=== PATIENT | female | born 1960 | race Caucasian/White ===

== ENCOUNTER → 2018-12-13 17:54 | Emergency (ER) | payer OTHER ==
[2018-12-13 18:00] VITALS: BP 152/83
--- OUTSIDE RECORDS SUMMARY | 2018-12-13 18:05 | XMS REPORT | Continuity of Care Document ---
:1960 External Reference #:[id number] Author Name LeightonmadanChristina Care Team Providers Name Role Phone Jacquie Smith MD Primary Care Physician Unavailable Payers Date Identification Numbers Payment Provider Subscriber Policy Number: [id number] [employer] Daisha Elvia Loren PayID: [id number] [address] [place] [address] Expires: 2012 Policy Number: [id number] [facility] Daisha Gómezling Group Number: [id number] [address] PayID: [id number] [place] [address] Advance Directives Type Date Description Status Comment Other Directive 08/12/2015 Health Care Proxy Current and Verified Problems Date Description Provider Status Onset: 02/20/2011 Migraine Raine Lora N.P. 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 Multiple / Active Tablets 1 po qd Unknown Vitamins 0000 Probiotic / Active Capsules 30cap 1 po qd Unknown 0000 s Calcium 500 / Active 1 po daily Unknown 0000 Tetracycline 10/25/ Hx Capsules 500mg 14cap 1 by mouth Raine HCL 2014 - s twice a day Varn, 11/01/ N.P. 2014 Ciprofloxacin 10/23/ Hx Tablets 500mg 7tabs one by 599.0 Raine HCL 2014 - mouth twice Varn, 10/25/ daily for 7 N.P. 2014 days Ciprofloxacin 10/08/ Hx Tablets 250mg 14tab take one 788.41 Neil HCL 2014 - tablet MANUEL Lea 10/15/ twice a day 2014 for 7 more days. Sulfamethoxazol 05/17/ Hx Tablets 800-160mg 10tab 1 tablet by 892.0 Neil e/Trimethoprim 2013 - s mouth every MANUEL Lea DS 07/23/ 12 hours 5 2013 days Ciprofloxacin 12/19/ Hx Tablets 250mg 14tab one by 599.0 Raine HCL 2013 - s mouth twice Varn, 12/26/ a day for 7 N.P. 2013 days Tetracycline 09/10/ Hx Capsules 250mg 28cap 1 po qid Raine HCL 2013 - s for 7 days Varn, 09/11/ N.P. 2013 Ciprofloxacin 09/06/ Hx Tablets 500mg 14tab one by 599.0 Raine HCL 2013 - s mouth twice Varn, 09/13/ daily for 7 N.P. 2013 days Pyridium 09/06/ Hx Tablets 100mg 9tabs one po tid 599.0 Raine 2014 - for 3 days Varn, 09/09/ N.P. 2013 Naproxen 08/28/ Hx Tablets 500mg 40tab 1 tablet Lori 2013 - s Q12 hours Jeff, 08/23/ prn pain Airma 2014 Fluticasone 12/24/ Hx Suspension 50mcg/Act 1bott 2 spray in 461.0 RodolfoLeif Keegan Mauro 2011 - le juan Dangelo, 08/08/ nostril in Luna.Lucia,FACP 2012 am Nasal Saline 12/24/ Hx Solution 0.65% 1ml 2 sprays in 461.0 Diony 2011 - each D. Loreto, 08/08/ nostril 5 M.D.,FACP 2013 times a day Amoxicillin 12/24/ Hx Capsules 500mg 20cap 1 cap bid 461.0 Diony 2011 - s for 10 days Lucia Dangelo, 03/03/ M.D.,FACP 2011 Treximet 12/04/ Hx Tablets 85-500mg 12tab take 1 Raine 2010 - tablet Varn, 10/04/ orally once N.P. 2018 a day as needed Audiometry 09/25/ Hx Minerva 2010 - Maura, 08/08/ M.D., 2013 FACP Medications Administered in Office Medication Date Status Form Strength Qnty SIG Indications Ordering Provider Celestone 3 mg Administered Injection Glenis and 3mg 014 Cam pastrana M.D. Depomedrol Administered Injection Lori 80MG 014 Airam Aguilar Immunizations CPT Code Status Date Vaccine Lot # [id number] Given 05/17/2014 Tetanus And Diptheria (Td) For Adult Use [id number] Preservative Free [id number] Given 04/05/2007 Tdap - Tetanus/Diptheria/Acellular Pertussis [id number] Given 04/05/2007 Tdap - Tetanus/Diptheria/Acellular Pertussis Vital Signs Date Vital Result Comment 11/22/2018 12:55pm Height 65 inches 5'5" 75 Weight 123.38 lb Heart Rate 81 /min BP Systolic 120 mmHg BP Diastolic 67 mmHg Body Temperature 97.2 F O2 % BldC Oximetry 98 % BMI (Body Mass Index) 20.5 kg/m2 Waist Circumference 26 10/21/2017 11:43am Height 65 inches 75 Weight 122.50 lb Heart Rate 66 /min BP Systolic 98 mmHg BP Diastolic 62 mmHg Body Temperature 98.6 F O2 % BldC Oximetry 97 % BMI (Body Mass Index) 20.4 kg/m2 Waist Circumference 25 10/04/2017 9:10am Height 66 inches 5'6" Weight 121.00 lb Heart Rate 60 /min BP Systolic 119 mmHg BP Diastolic 70 mmHg Body Temperature 97.2 F O2 % BldC Oximetry 97 % BMI (Body Mass Index) 19.5 kg/m2 08/18/2016 9:10am Height 65.5 inches 5'5.50" Weight 124.00 lb Heart Rate 71 /min BP Systolic Sitting 102 mmHg BP Diastolic Sitting 58 mmHg O2 % BldC Oximetry 98 % BMI (Body Mass Index) 20.3 kg/m2 08/12/2015 9:27am Height 65.5 inches 5'5.50" Weight 122.25 lb Heart Rate 65 /min BP Systolic Sitting 105 mmHg BP Diastolic Sitting 68 mmHg Body Temperature 97.3 F O2 % BldC Oximetry 99 % BMI (Body Mass Index) 20.0 kg/m2 02/19/2015 8:19am Height 66 inches 5'6" Weight 119.00 lb Pain Level 1 BMI (Body Mass Index) 19.2 kg/m2 01/22/2015 8:08am Height 66 inches 5'6" Weight 119.00 lb Body Temperature 97.2 F Pain Level 0 BMI (Body Mass Index) 19.2 kg/m2 12/19/2014 10:10am Height 66 inches 5'6" Weight 119.00 lb Pain Level 0 BMI (Body Mass Index) 19.2 kg/m2 11/16/2014 2:34pm Height 66 inches 5'6" Weight 119.00 lb Pain Level 0 BMI (Body Mass Index) 19.2 kg/m2 10/23/2014 10:03am Weight 119.00 lb Heart Rate 78 /min BP Systolic Sitting 126 mmHg BP Diastolic Sitting 72 mmHg Body Temperature 97.2 F 10/08/2014 3:52pm Weight 122.25 lb Heart Rate 78 /min BP Systolic Sitting 112 mmHg BP Diastolic Sitting 60 mmHg Body Temperature 97.9 F 09/18/2014 10:53am Height 66 inches 5'6" Weight 116.00 lb Pain Level 0 BMI (Body Mass Index) 18.7 kg/m2 08/14/2014 8:12am Height 66 inches 5'6" Weight 115.00 lb Pain Level 6 BMI (Body Mass Index) 18.6 kg/m2 08/09/2014 9:57am Height 66 inches 5'6" Weight 118.00 lb Heart Rate 64 /min BP Systolic 100 mmHg BP Diastolic 64 mmHg Body Temperature 96.9 F BMI (Body Mass Index) 19.0 kg/m2 07/31/2014 9:42am Height 66 inches 5'6" Weight 116.00 lb Heart Rate 64 /min BP Systolic Sitting 104 mmHg BP Diastolic Sitting 68 mmHg Respiratory Rate 16 /min Pain Level 6 BMI (Body Mass Index) 18.7 kg/m2 05/17/2014 1:30pm Weight 119.50 lb Heart Rate 60 /min BP Systolic Sitting 102 mmHg BP Diastolic Sitting 70 mmHg Body Temperature 97.2 F 05/11/2014 1:01pm Weight 120.00 lb Heart Rate 68 /min BP Systolic Sitting 110 mmHg BP Diastolic Sitting 66 mmHg 12/19/2013 2:13pm Weight 134.50 lb Heart Rate 76 /min BP Systolic 120 mmHg BP Diastolic 72 mmHg Respiratory Rate 16 /min Body Temperature 96.8 F 09/11/2013 8:37am Height 66 inches Weight 125.00 lb Heart Rate 70 /min BP Systolic 96 mmHg BP Diastolic 61 mmHg BMI (Body Mass Index) 20.2 kg/m2 09/06/2013 12:53pm Weight 129.00 lb Heart Rate 76 /min BP Systolic Sitting 126 mmHg BP Diastolic Sitting 82 mmHg Body Temperature 98.5 F 08/28/2013 10:12am Height 66 inches 5'6" Weight 125.00 lb Heart Rate 65 /min BP Systolic 119 mmHg BP Diastolic 79 mmHg BMI (Body Mass Index) 20.2 kg/m2 08/08/2013 10:51am Height 65.75 inches 5'5.75" Weight 129.00 lb Heart Rate 78 /min BP Systolic Sitting 104 mmHg BP Diastolic Sitting 70 mmHg BMI (Body Mass Index) 21.0 kg/m2 02/14/2013 9:18am Weight 126.00 lb Heart Rate 76 /min BP Systolic Sitting 112 mmHg BP Diastolic Sitting 72 mmHg 03/03/2012 9:00am Height 66 inches 5'6" Weight 126.00 lb Heart Rate 68 /min BP Systolic Sitting 124 mmHg BP Diastolic Sitting 66 mmHg BMI (Body Mass Index) 20.3 kg/m2 12/25/2011 9:03am Height 66 inches 5'6" Weight 131.00 lb Heart Rate 80 /min BP Systolic Sitting 120 mmHg BP Diastolic Sitting 74 mmHg BMI (Body Mass Index) 21.1 kg/m2 02/20/2011 8:36am Height 67 inches 5'7" Weight 130.00 lb Heart Rate 72 /min BP Systolic Sitting 108 mmHg BP Diastolic Sitting 66 mmHg BMI (Body Mass Index) 20.4 kg/m2 09/25/2010 2:39pm Heart Rate 72 /min BP Systolic 102 mmHg BP Diastolic 68 mmHg Body Temperature 98.7 F Results Test Date Facility Test Result H/L Range Note Lipid Profile 11/17/2018 [facility] Triglycerides 88 mg/dL 1 (Trig/Chol/HDL) [address] [place] [address] [phone] Cholesterol 201 mg/dL 2 HDL Cholesterol 77.2 mg/dL 3 LDL Cholesterol 106 mg/dL 4 Comp Metabolic Panel 11/17/2018 [facility] Sodium 141 mmol/L N 135-145 [place] [address] [phone] Potassium 4.3 mmol/L N 3.5-5.0 Chloride 104 mmol/L N 101-111 Co2 Carbon Dioxide 32 mmol/L N 22-32 Anion Gap 5 mmol/L N 2-11 Glucose 92 mg/dL N 70-100 Blood Urea Nitrogen 22 mg/dL N 6-24 Creatinine 0.74 mg/dL N 0.51-0.95 BUN/Creatinine Ratio 29.7 High 8-20 Calcium 9.9 mg/dL N 8.6-10.3 Total Protein 6.8 g/dL N 6.4-8.9 Albumin 4.6 g/dL N 3.2-5.2 Globulin 2.2 g/dL N 2-4 Albumin/Globulin Ratio 2.1 N 1-3 Total Bilirubin 0.50 mg/dL N 0.2-1.0 Alkaline Phosphatase 53 U/L N 34-104 Alt 15 U/L N 7-52 Ast 21 U/L N 13-39 Egfr Non- 81.2 >60 Egfr 98.2 >60 5 Lipid Profile 09/09/2017 [facility] Triglycerides 76 mg/dL 6 (Trig/Chol/HDL) [address] [place] [address] [phone] Cholesterol 191 mg/dL 7 HDL Cholesterol 65.7 mg/dL 8 LDL Cholesterol 110 mg/dL 9 Comp Metabolic Panel 09/09/2017 [facility] Sodium 139 mmol/L N 133-145 [address] [place] [address] [phone] Potassium 4.1 mmol/L N 3.5-5.0 Chloride 103 mmol/L N 101-111 Co2 Carbon Dioxide 32 mmol/L N 22-32 Anion Gap 4 mmol/L N 2-11 Glucose 77 mg/dL N 70-100 Blood Urea Nitrogen 20 mg/dL N 6-24 Creatinine 0.73 mg/dL N 0.51-0.95 BUN/Creatinine Ratio 27.4 High 8-20 Calcium 9.7 mg/dL N 8.6-10.3 Total Protein 6.5 g/dL N 6.4-8.9 Albumin 4.2 g/dL N 3.2-5.2 Globulin 2.3 g/dL N 2-4 Albumin/Globulin Ratio 1.8 N 1-3 Total Bilirubin 0.50 mg/dL N 0.2-1.0 Alkaline Phosphatase 54 U/L N 34-104 Alt 13 U/L N 7-52 Ast 21 U/L N 13-39 Egfr Non- 82.8 >60 Egfr 106.4 >60 10 Lipid Profile 08/06/2016 [facility] Triglycerides 60 mg/dL N 11 (Trig/Chol/HDL) [address] [place] [address] [phone] Cholesterol 191 mg/dL N 12 HDL Cholesterol 71.8 mg/dL N 13 LDL Cholesterol 107 mg/dL N 14 Comp Metabolic Panel 08/06/2016 [facility] Sodium 139 mmol/L N 133-[address] [place] [address] [phone] Potassium 4.0 mmol/L N 3.5-5.0 Chloride 103 mmol/L N 101-111 Co2 Carbon Dioxide 31 mmol/L N 22-32 Anion Gap 5 mmol/L N 2-11 Glucose 82 mg/dL N 70-100 Blood Urea Nitrogen 19 mg/dL N 6-24 Creatinine 0.71 mg/dL N 0.51-0.95 BUN/Creatinine Ratio 26.8 High 8-20 Calcium 9.6 mg/dL N 8.6-10.3 Total Protein 6.4 g/dL N 6.4-8.9 Albumin 4.2 g/dL N 3.2-5.2 Globulin 2.2 g/dL N 2-4 Albumin/Globulin Ratio 1.9 N 1-3 Total Bilirubin 0.60 mg/dL N 0.2-1.0 Alkaline Phosphatase 51 U/L N 34-104 Alt 15 U/L N 7-52 Ast 22 U/L N 13-39 Egfr Non- 85.8 N >60 Egfr 110.3 N >60 15 Comp Metabolic Panel 07/30/2015 [facility] Sodium 140 mmol/L N 133-145 [address] [place] [address] [phone] Potassium 4.1 mmol/L N 3.5-5.0 Chloride 104 mmol/L N 101-111 Co2 Carbon Dioxide 31 mmol/L N 22-32 Anion Gap 5 mmol/L N 2-11 Glucose 81 mg/dL N 70-100 Blood Urea Nitrogen 20 mg/dL N 6-24 Creatinine 0.80 mg/dL N 0.51-0.95 BUN/Creatinine Ratio 25.0 High 8-20 Calcium 9.6 mg/dL N 8.6-10.3 Total Protein 6.4 g/dL N 6.4-8.9 Albumin 4.4 g/dL N 3.2-5.2 Globulin 2.0 g/dL N 2-4 Albumin/Globulin Ratio 2.2 N 1-3 Total Bilirubin 0.60 mg/dL N 0.2-1.0 Alkaline Phosphatase 53 U/L N 34-104 Alt 12 U/L N 7-52 Ast 20 U/L N 13-39 Egfr Non- 75.0 N >60 Egfr 96.5 N >60 16 Lipid Profile 07/30/2015 [facility] Triglycerides 75 mg/dL N 17 (Trig/Chol/HDL) [address] [place] [address] [phone] Cholesterol 191 mg/dL N 18 HDL Cholesterol 70.1 mg/dL N 19 LDL Cholesterol 106 mg/dL N 20 Ua Routine 10/23/2014 [employer] Ua Specific [place] 1.020 Ua PH 5 Ua Color laisha Ua Appera cloudy Ua WBC lg Ua Protein 300 Ua Glucose neg Ua Ketones neg Ua Bilirubin neg Ua Urobilinogen 0.2 Ua Nitrite pos Ua Occult Blood lg Urine Culture And 10/23/2014 [facility] Urine Culture (SEE NOTE ) 21 [address]ivities [address] [place] [address] [phone] Urine Culture And 10/08/2014 [facility] Urine Culture (SEE NOTE ) 22 Sensitivities [address] [place] [address] [phone] Ua Routine 10/08/2014 [employer] Ua Specific 1.020 [place] Ua PH 5 Ua Color yellow Ua Appera cloudy Ua WBC moderate Ua Protein 30+ Ua Glucose neg Ua Ketones neg Ua Bilirubin small Ua Urobilinogen normal Ua Nitrite 30+ Ua Occult Blood large Lipid Profile 07/25/2014 [facility] Triglycerides 84 mg/dL N 23, 24 (Trig/Chol/HDL) [address] [place], [place] [id number] [phone] Cholesterol 183 mg/dL N 25 HDL Cholesterol 62.4 mg/dL N 26 LDL Cholesterol 104 mg/dL N 27 Laboratory test 07/25/2014 [facility] Glucose 84 mg/dL N 70- [address] [place], [place] [id number] [phone] Comp Metabolic Panel 05/16/2014 [facility] Sodium 139 mmol/L N 133-[address] [place] [address] [phone] Potassium 4.4 mmol/L N 3.7-5.6 Chloride 102 mmol/L N 101-111 Co2 Carbon Dioxide 34 mmol/L High 22-32 Anion Gap 3 mmol/L N 2-11 Glucose 87 mg/dL N 70-100 Blood Urea Nitrogen 15 mg/dL N 6-24 Creatinine 0.86 mg/dL N 0.51-0.95 BUN/Creatinine Ratio 17.4 N 8-20 Calcium 9.8 mg/dL N 8.6-10.3 Total Protein 6.9 g/dL N 6.4-8.9 Albumin 4.4 g/dL N 3.2-5.2 Globulin 2.5 g/dL N 2-4 Albumin/Globulin Ratio 1.8 N 1-3 Total Bilirubin 0.60 mg/dL N 0.2-1.0 Alkaline Phosphatase 50 U/L N 34-104 Alt 14 U/L N 7-52 Ast 22 U/L N 13-39 Egfr Non- 69.6 N >60 Egfr 89.5 N >60 29 Laboratory test 05/16/2014 [facility] TSH (Thyroid 1.79 N 0.34 -5.[address] Stimulating IU/[place] [address] Horm) [phone] CBC With Manual 05/16/2014 [facility] White Blood 4.5 Low 4.8- 10.[address] Count 10^3/[place] [address] [phone] Red Blood Count 4.51 10^6/uL N 4.0-5.4 Hemoglobin 13.3 g/dL N 12.0-16.0 Hematocrit 40 % N 35-47 Mean Corpuscular Volume 88 fL N 80-97 Mean Corpuscular Hemoglobin 30 pg N 27-31 Mean Corpuscular HGB Conc 34 g/dL N 31-36 Red Cell Distribution Width 13 % N 10.5-15 Platelet Count 213 10^3/uL N 150-450 Mean Platelet Volume 8 um3 N 7.4-10.4 Abs Neutrophils 2.5 10^3/uL N 1.5-7.7 Abs Lymphocytes 1.4 10^3/uL N 1.0-4.8 Abs Monocytes 0.4 10^3/uL N 0-0.8 Abs Eosinophils 0.1 10^3/uL N 0-0.6 Abs Basophils 0.1 10^3/uL N 0-0.2 Abs Nucleated RBC 0.01 10^3/uL N Neutrophil % 57 % N 38-83 Lymphocytes % 27 % N 25-47 Monocytes % 12 % N 0-13 Eosinophils % 1 % N 0-6 Basophil % 3 % High 0-2 Hypochromasia 1+ N Elliptocyte 1+ N Urine Culture And 12/19/2013 [facility] Urine Culture (SEE NOTE ) [address] [place] [address] [phone] Ua Routine 12/19/2013 [employer] Ua Specific 1.000 [place] Ua PH 7.0 Ua Color yellow Ua Appera cloudy Ua WBC small Ua Protein neg Ua Glucose neg Ua Ketones neg Ua Bilirubin sm Ua Urobilinogen neg Ua Nitrite neg Ua Occult Blood large Urine Culture And 09/06/2013 [facility] Urine Culture (SEE NOTE ) [address] [place] [address] [phone] Ua Routine 09/06/2013 [employer] Ua Specific 1.025 [place] Ua PH 8.5 Ua Color brown Ua Appera cloudy Ua WBC moderate Ua Protein 2000+ Ua Glucose neg Ua Ketones neg Ua Bilirubin neg Ua Urobilinogen neg Ua Nitrite neg Ua Occult Blood Xlarge Lipid Profile 08/03/2013 [facility] Triglycerides 69 mg/dL 40 -200 (Trig/Chol/HDL) [address] [place], [place] [id number] [phone] Cholesterol 202 mg/dL High Less than 200 HDL Cholesterol 70 mg/dL High 40-60 32 Cholesterol/HDL Ratio 2.9 Average 1-4.44 LDL Cholesterol 118.2 High Less Than 100 33 Laboratory test 08/03/2013 [facility] Glucose 81 mg/dL 70- 100 [address] [place], [place] [id number] [phone] Laboratory test 02/17/2013 [facility] TSH (Thyroid 1.57 0.34- 5.[address] Stimulating miu/[place] [address] Horm) [phone] Comp Metabolic 02/17/2013 [facility] Sodium 139 133-[address] mmol/L [place], [place] [id number] [phone] Potassium 4.0 mmol/L 3.5-5.0 Chloride 103 mmol/L 101-111 Co2 Carbon Dioxide 31.0 mmol/L 22-32 Anion Gap 5.0 mmol/L 2-11 Glucose 91 mg/dL 70-100 Blood Urea Nitrogen 16 mg/dL 6-24 Creatinine 0.70 mg/dL 0.50-1.40 BUN/Creatinine Ratio 22.9 High 8-20 Calcium 9.5 mg/dL 8.1-9.9 Total Protein 6.2 g/dL 6.2-8.1 Albumin 4.2 g/dL 3.6-5.4 Globulin 2.0 g/dL 2-4 Albumin/Globulin Ratio 2.1 1-3 Total Bilirubin 0.9 mg/dL 0.4-1.5 Alkaline Phosphatase 41 U/L 30-110 Alt 15 U/L 14-54 Ast 22 U/L 12-42 Egfr Non- 88.6 >60 Egfr 113.9 >60 35 CBC With 02/17/2013 [facility] White Blood 4.7 10^3/uL Low 4.8 -10.8 Manual Diff [address] [place] [address] [phone] Red Blood Count 4.26 10^6/uL 4.0-5.4 Hemoglobin 12.8 g/dL 12.0-16.0 Hematocrit 39 % 35-47 Mean Corpuscular Volume 91 fL 80-97 Mean Corpuscular Hemoglobin 30 pg 27-31 Mean Corpuscular HGB Conc 33 g/dL 31-36 Red Cell Distribution Width 13 % 10.5-15 Platelet Count 190 10^3/uL 150-450 Mean Platelet Volume 9 um3 7.4-10.4 Abs Neutrophils 2.7 10^3/uL 1.5-7.7 Abs Lymphocytes 1.4 10^3/uL 1.0-4.8 Abs Monocytes 0.4 10^3/uL 0-0.8 Abs Eosinophils 0.1 10^3/uL 0-0.6 Abs Basophils 0 10^3/uL 0-0.2 Abs Nucleated RBC 0 10^3/uL Neutrophil % 58 % 38-83 Lymphocytes % 31 % 25-47 Monocytes % 5 % 0-13 Eosinophils % 3 % 0-6 Basophil % 3 % High 0-2 Elliptocyte 1+ Surgical 09/07/2012 [facility] S RUN DATE: [address] 09/12/ <[place] [address] NOTE> [phone] Laboratory test 03/03/2011 [facility] TSH 1.44 MIU/ML 0.34-[address] [place] [address] [phone] Lipid Profile 03/03/2011 [facility] Triglyceride 75 mg/dL 40- 200 (Trig/Chol/HDL) [address] [place] [address] [phone] Cholesterol 185 mg/dL Less Than 200 37 High Density Lipoprotein 62 mg/dL High 40-60 38 Cholesterol/HDL Ratio 2.98 AVERAGE 1-4.44 Low Density Lipoprotein 108 mg/dL High Less Than 100 39 Comp Metabolic Panel 03/03/2011 [facility] Sodium 137 mmol/L 135-[address] [place] [address] [phone] Potassium 3.6 mmol/L 3.5-5.0 Chloride 103 mmol/L 101-111 Co2 (Carbon Dioxide) 29.0 mmol/L 22-32 Anion Gap 5.0 mmol/L 2-11 40 Glucose 86 mg/dL 70-100 BUN 12 mg/dL 6-24 Creatinine 0.70 mg/dL 0.50-1.40 One Over Creatinine 1.40 BUN/Creatinine Ratio 17.1 8-20 Calcium 8.9 mg/dL 8.1-9.9 Total Protein 5.8 GM/DL Low 6.2-8.1 Albumin 4.0 GM/DL 3.6-5.4 Globulin 1.8 GM/DL Low 2-4 Albumin/Globulin Ratio 2.2 1-3 Bilirubin Total 0.8 mg/dL 0.4-1.5 41 Alkaline Phosphatase 44 U/L 30-110 Alt (SGPT) 12 U/L Low 14-54 Ast (Sgot) 22 U/L 12-42 eGFR Non- 89.3 > 60 eGFR 114.9 > 60 42 Laboratory test 02/20/2011 [facility] Cytology <SEE [address] NOTE> [place] [address] [phone] 1 Desirable: <150 Borderline High: 150-199 High: 200-499 Very High: >500 2 Desirable: <200 Borderline High: 200-239 High: >239 3 Low: <40 Desirable: 40-60 High: >60 4 Desirable: <100 Near Optimal: 100-129 Borderline High: 130-159 High: 160-189 Very High: >189 5 Because ethnic data is not always readily available, this report includes an eGFR for both -Americans and non- Americans. The National Kidney Disease Education Program (NKDEP) does not endorse the use of the MDRD equation for patients that are not between the ages of 18 and 70, are , have extremes of body size, muscle mass, or nutritional status, or are non- or non-. According to the National Kidney Foundation, irrespective of diagnosis, the stage of the disease is based on the level of kidney function: Stage Description GFR(mL/min/1.73 m(2)) 1 Kidney damage with normal or decreased GFR 90 2 Kidney damage with mild decrease in GFR 60-89 3 Moderate decrease in GFR 30-59 4 Severe decrease in GFR 15-29 5 Kidney failure <15 (or dialysis) 6 Desirable: <150 Borderline High: 150-199 High: 200-499 Very High: >500 7 Desirable: <200 Borderline High: 200-239 High: >239 8 Low: <40 Desirable: 40-60 High: >60 9 Desirable: <100 Near Optimal: 100-129 Borderline High: 130-159 High: 160-189 Very High: >189 10 Because ethnic data is not always readily available, this report includes an eGFR for both -Americans and non- Americans. The National Kidney Disease Education Program (NKDEP) does not endorse the use of the MDRD equation for patients that are not between the ages of 18 and 70, are , have extremes of body size, muscle mass, or nutritional status, or are non- or non-. According to the National Kidney Foundation, irrespective of diagnosis, the stage of the disease is based on the level of kidney function: Stage Description GFR(mL/min/1.73 m(2)) 1 Kidney damage with normal or decreased GFR 90 2 Kidney damage with mild decrease in GFR 60-89 3 Moderate decrease in GFR 30-59 4 Severe decrease in GFR 15-29 5 Kidney failure <15 (or dialysis) 11 Desirable <150 Borderline high 150-199 High 200-499 Very High >500 12 Desirable <200 Borderline high 200-239 High >239 13 Low <40 Desirable: 40-60 High: >60 14 Desirable: <100 mg/dL Near Optimal: 100-129 mg/dL Borderline High: 130-159 mg/dL High: 160-189 mg/dL Very High: >189 mg/dL 15 Because ethnic data is not always readily available, this report includes an eGFR for both -Americans and non- Americans. The National Kidney Disease Education Program (NKDEP) does not endorse the use of the MDRD equation for patients that are not between the ages of 18 and 70, are , have extremes of body size, muscle mass, or nutritional status, or are non- or non-. According to the National Kidney Foundation, irrespective of diagnosis, the stage of the disease is based on the level of kidney function: Stage Description GFR(mL/min/1.73 m(2)) 1 Kidney damage with normal or decreased GFR 90 2 Kidney damage with mild decrease in GFR 60-89 3 Moderate decrease in GFR 30-59 4 Severe decrease in GFR 15-29 5 Kidney failure <15 (or dialysis) 16 Because ethnic data is not always readily available, this report includes an eGFR for both -Americans and non- Americans. The National Kidney Disease Education Program (NKDEP) does not endorse the use of the MDRD equation for patients that are not between the ages of 18 and 70, are , have extremes of body size, muscle mass, or nutritional status, or are non- or non-. According to the National Kidney Foundation, irrespective of diagnosis, the stage of the disease is based on the level of kidney function: Stage Description GFR(mL/min/1.73 m(2)) 1 Kidney damage with normal or decreased GFR 90 2 Kidney damage with mild decrease in GFR 60-89 3 Moderate decrease in GFR 30-59 4 Severe decrease in GFR 15-29 5 Kidney failure <15 (or dialysis) 17 Desirable <150 Borderline high 150-199 High 200-499 Very High >500 18 Desirable <200 Borderline high 200-239 High >239 19 Low <40 Desirable: 40-60 High: >60 20 Desirable: <100 mg/dL Near Optimal: 100-129 mg/dL Borderline High: 130-159 mg/dL High: 160-189 mg/dL Very High: >189 mg/dL 21 RUN DATE: 10/25/14 [facility] LAB LIVE PAGE 1 RUN TIME: [address] [place] [address] Specimen Inquiry Name: DAISHA PIMENTEL : [address]: Raine Lora NP Acct: [id number] Unit: [id number] AGE: 54 Location: [facility] Re10/23/14 SEX: F Status: REG REF SPEC: [id number] GAETANO: 10/23/14-[address]: Raine Lora NP REQ: [id number] RECD: 10/23/14 STATUS: COMP _ SOURCE: URINE SPDESC: ORDERED: Urine Culture QUERIES: Provider Requisition # [id number] Procedure Result Verified Site Urine Culture Final 10/25/14- 1206 L Organism 1 ESBL ESCHERICHIA COLI [place] Count 10-25,000 (Moderate) CFU/ML Consistent with previous results on 09/06/13. * This is an updated result. * A prior result that was reported as final has been changed. CONTINUED ON NEXT PAGE RUN DATE: 10/25/14 [facility] LAB LIVE PAGE 2 RUN TIME: [address] [place] [address] Specimen Inquiry Patient: DAISHA PIMENTEL [id number] (Continued) Specimen: [id number] Collected: 10/23/14 Received: 10/23/14-1540 (Continued) Procedure Result Verified Site * ML=Testing performed at Main Lab DEPARTMENT OF PATHOLOGY, [facility] [employer] [place], [place] [address] David Frye M.D. Director SOL # [id number] RUN DATE: 10/25/14 [facility] LAB LIVE PAGE 3 RUN TIME: [address] [place], [place] [address] Specimen Inquiry Patient: DAISHA PIMENTEL [id number] (Continued) Specimen: [id number] Collected: 10/23/14-1018 Received: 10/23/14-154 (Continued) Procedure Result Verified Site Urine Culture Final (continued) 10/25/14- 1204 1. ESBL ESCHERICHIA COLI M.I.C. RX --------- ------ Ampicillin >=32 R Cefazolin >=64 R Cefepime R Ceftriaxone >=64 R Ciprofloxacin >=4 R Gentamicin <=1 S Levofloxacin >=8 R Meropenem <=0.25 S Nitrofurantoin 64 I Tetracycline <=1 S Pipercillin/Tazobactam <=4 S Trimethoprim/Sulfamethoxazole >=320 R Amoxicillin/Clavulanic Acid 4 S Aztreonam R Contact the Microbiology Department for any additional antibiotic reporting. END OF REPORT * ML=Testing performed at Main Lab DEPARTMENT OF PATHOLOGY, [facility] [employer] [place], [place] [address] David Frye M.D. Director IA # [id number] RUN DATE: 10/10/14 [facility] LAB LIVE PAGE 1 RUN TIME: 955 [facility] [employer] [place], [place] [address] Specimen Inquiry Name: DAISHA PIMENTEL : [address]: Neil Lea NP Acct: [id number] Unit: [id number] AGE: 54 Location: [facility] Re10/08/14 SEX: F Status: REG REF SPEC: [id number] GAETANO: 10/08/14-1613 [facility] DR: Neil Lea CRATE ICER REQ: [id number] RECD: 10/08/14 STATUS: COMP _ SOURCE: URINE SPDESC: ORDERED: Urine Culture QUERIES: Provider Requisition # [id number] Procedure Result Verified Site Urine Culture Final 10/10/14- 0956 ML Organism 1 NORMAL STEFANO Huddleston Count 1-10,000 (Few) CFU/ML END OF REPORT * ML=Testing performed at Main Lab DEPARTMENT OF PATHOLOGY, [address] [place] [address] David Frye M.D. Director [facility] # [id number] FASTING 10 HOUR 24 Desirable <150 Borderline high 150-199 High 200-499 Very High >500 25 Desirable <200 Borderline high 200-239 High >239 26 Low <40 Desirable: 40-60 High: >60 27 Desirable <100 Near Optimal 100-129 Borderline high 130-159 High 160-189 Very High >189 28 FASTING 10 HOUR 29 Because ethnic data is not always readily available, this report includes an eGFR for both -Americans and non- Americans. The National Kidney Disease Education Program (NKDEP) does not endorse the use of the MDRD equation for patients that are not between the ages of 18 and 70, are , have extremes of body size, muscle mass, or nutritional status, or are non- or non-. According to the National Kidney Foundation, irrespective of diagnosis, the stage of the disease is based on the level of kidney function: Stage Description GFR(mL/min/1.73 m(2)) 1 Kidney damage with normal or decreased GFR 90 2 Kidney damage with mild decrease in GFR 60-89 3 Moderate decrease in GFR 30-59 4 Severe decrease in GFR 15-29 5 Kidney failure <15 (or dialysis) 30 RUN DATE: 12/21/13 [facility] LAB LIVE PAGE 1 RUN TIME: [address] [place], [place] [address] Specimen Inquiry Name: LORENKARENDAISHA A : [address]: Raine Lora NP Acct: [id number] Unit: [id number] AGE: 53 Location: [facility] Re12/19/13 SEX: F Status: REG REF SPEC: [id number] GAETANO: 12/19/13-143[facility] DR: Raine Lora NP REQ: [id number] RECD: 12/19/13 STATUS: COMP _ SOURCE: URINE SPDESC: ORDERED: Urine Culture QUERIES: Medent Number [id number] Procedure Result Verified Site Urine Culture Final 12/21/13- 1132 ML No Growth Day 2 (<1,000 CFU/mL) END OF REPORT * ML=Testing performed at Main Lab DEPARTMENT OF PATHOLOGY, [facility] [employer] [place], [place] [address] David Frye M.D. Director [facility] Permit #[id number] RUN DATE: 09/09/13 [facility] LAB LIVE PAGE 1 RUN TIME: 951 [facility] [employer] [place], [place] [address] Specimen Inquiry Name: DAISHA PIMENTEL : [address]: Raine Lora NP Acct: [id number] Unit: [id number] AGE: 53 Location: [facility] Re09/06/13 SEX: F Status: REG REF SPEC: [id number] GAETANO: 09/06/13-5 [facility] [address]: Raine Lora NP REQ: [id number] RECD: 09/06/13 STATUS: COMP _ SOURCE: URINE SPDESC: ORDERED: Urine Culture QUERIES: Medent Number [id number] Procedure Result Verified Site Urine Culture Final 09/09/13- 950 ML Organism 1 ESBL ESCHERICHIA COLI [place] Count 10-25,000 (Moderate) CFU/ML This isolate is an Extended Spectrum Beta-Lactamase Youth Officer (ESBL) strain, and as such is considered resistant for all penicillins, cephalosporins and aztreonam. 1. ESBL ESCHERICHIA COLI M.I.C. RX --------- ------ Ampicillin >=32 R Cefazolin >=64 R Cefepime R Ceftriaxone >=64 R Ciprofloxacin >=4 R Gentamicin <=1 S Imipenem <=0.25 S Levofloxacin >=8 R Meropenem <=0.25 S Nitrofurantoin 64 I Tetracycline <=1 S Pipercillin/Tazobactam <=4 S Trimethoprim/Sulfamethoxazole >=320 R Amoxicillin/Clavulanic Acid 4 S Aztreonam R CONTINUED ON NEXT PAGE * ML=Testing performed at Main Lab DEPARTMENT OF PATHOLOGY, [facility] [employer] [place] [address] Dvaid Frye M.D. Director [facility] Permit #[id number] RUN DATE: 09/09/13 [facility] LAB LIVE PAGE 2 RUN TIME: 951 [facility] [employer] [place], [place] [address] Specimen Inquiry Patient: DAISHA PIMENTEL [id number] (Continued) Specimen: [id number] Collected: 09/06/13-1314 Received: 09/06/13 (Continued) Procedure Result Verified Site Urine Culture Final (continued) Contact the Microbiology Department for any additional antibiotic reporting. END OF REPORT * ML=Testing performed at Main Lab DEPARTMENT OF PATHOLOGY, [address] [place] [address] David Frye M.D. Director [facility] Permit #[id number] HDL Interpretation: Undesirable: High Risk: Less than 40 mg/dL Desirable: Low Risk: Greater than 60 mg/dL 33 LDL Interpretation: Low Risk Optimal Level: LDL Less than 100 mg/dL Near or Above Optimal: LDL 100-129 mg/dL Borderline High Risk: LDL 130-159 mg/dL High Risk: LDL 160-189 mg/dL Very High Risk: LDL Greater than 189 mg/dL 34 FASTING 35 Because ethnic data is not always readily available, this report includes an eGFR for both -Americans and non- Americans. The National Kidney Disease Education Program (NKDEP) does not endorse the use of the MDRD equation for patients that are not between the ages of 18 and 70, are , have extremes of body size, muscle mass, or nutritional status, or are non- or non-. According to the National Kidney Foundation, irrespective of diagnosis, the stage of the disease is based on the level of kidney function: Stage Description GFR(mL/min/1.73 m(2)) 1 Kidney damage with normal or decreased GFR 90 2 Kidney damage with mild decrease in GFR 60-89 3 Moderate decrease in GFR 30-59 4 Severe decrease in GFR 15-29 5 Kidney failure <15 (or dialysis) 36 RUN DATE: 09/12/12 [facility] LAB LIVE PAGE 1 RUN TIME: [address] [place] [address] Specimen Inquiry Name: LORENDAISHA : [address]: Ale Olsen MD Acct: [id number] Unit: [id number] AGE: 52 Location: [facility] Re09/07/12 SEX: F Status: REG REF SPEC: [id number] GAETANO: 09/07/12- SUBM DR: Ale Olsen MD REQ: [id number] RECD: 09/07/12-1535 STATUS: AVI MCGOWAN DR: Raine Lora CRATE ICER _ ORDERED: LEVEL IV FINAL DIAGNOSIS Skin, left upper chest, punch biopsy: A. Skin with dermal fibrosis and intradermal adipose tissue suggestive of fibrolipoma or skin scar. B. Clinical correlation is suggested. C. No evidence of neoplasia is identified. CLINICAL HISTORY No history given GROSS DESCRIPTION The specimen is received in formalin labelled Daisha Pimentel, Left Upper Chest Lesion, and consists of a punch biopsy specimen measuring 0.6 x 0.5 x 0.8 cm. The specimen is bisected and submitted entirely, one cassette. Signed (signature on file) David Frye MD 1559 END OF REPORT * ML=Testing performed at Main Lab DEPARTMENT OF PATHOLOGY, [address] [place] [address] David Frye M.D. Director [facility] Permit #[id number] CHOLESTEROL INTERPRETATION: Desirable: Less than 200 MG/DL Borderline-High Risk: 200-239 MG/DL High-Risk: 240 MG/DL and over 38 HDL INTERPRETATION: Undesirable: High Risk: Less than 40 MG/DL Desirable: Low Risk: Greater than 60 MG/DL 39 LDL INTERPRETATION: Low Risk Optimal Level: LDL Less than 100 MG/DL Near or Above Optimal: LDL 100-129 MG/DL Borderline High Risk: LDL 130-159 MG/DL High Risk: LDL 160-189 MG/DL Very High Risk: LDL Greater than 189 MG/DL 40 Anion gap measurement may be of limited value in the presence of any alkalosis, especially in a combined acid base disorder. . 41 A metabolite of Naproxen, O-desmethylnaproxen, has been shown to interfere with the Jendrassik-Camille method for measuring total bilirubin. Samples from patients who have taken Naproxen have shown spurious elevation in total bilirubin levels. 42 Because ethnic data is not always readily available, this report includes an eGFR for both -Americans and non- Americans. The National Kidney Disease Education Program (NKDEP) does not endorse the use of the MDRD equation for patients that are not between the ages of 18 and 70, are , have extremes of body size, muscle mass, or nutritional status, or are non- or non-. According to the National Kidney Foundation, irrespective of diagnosis, the stage of the disease is based on the level of kidney function: Stage Description GFR(mL/min/1.73 m(2)) 1 Kidney damage with normal or decreased GFR 90 2 Kidney damage with mild decrease in GFR 60-89 3 Moderate decrease in GFR 30-59 4 Severe decrease in GFR 15-29 5 Kidney failure <15 (or dialysis) 43 ---- RUN DATE: 02/24/11 [facility] NMI LIVE PAGE 1 RUN TIME: 1408 Specimen Inquiry RUN USER: INTERFACE -- Name: DAISHA PIMENTEL Elvia Status: REG REF Re02/20/11 Age/Sex: 50/F Unit#: [id number] Location: [facility] : [birth year] -- Specimen: [id number] Spec Date: 02/20/[address]: Raine BROUSSARD Spec Type: CYTOLOGY Received: 02/24/11 Copies to: SOURCE VAGINAL Thin Prep with Reflex HPV Test PATIENT INFORMATION ACTUAL COLLECTION DATE: 02/20/11 ? No POST MENOPAUSAL? Yes HYSTERECTOMY? Yes PREVIOUS ABNORMAL PAP SMEARS No PATIENT HISTORY: Last menstrual period at age 48 ADEQUACY OF SPECIMEN Satisfactory for evaluation * DIAGNOSIS NEGATIVE FOR INTRAEPITHELIAL LESION OR MALIGNANCY * This Pap test was evaluated with the assistance of the [employer] Pap Test Imaging System. The Pap Smear is a screening test designed to aid in the detection of premalign ant and malignant conditions of the uterine cervix. It is not a diagnostic procedure a nd should not be used as the sole means of detecting cervical cancer. Both false- positiv e and false-negative reports do occur. Depending on your risk status, a Pap smear sayda uld be obtained and evaluated every one to three years. Initial evaluation performed by Farida PICKENS([facility]) 02/24/11 Final Interpretation electronically signed by: Farida PICKENS([facility]) 02/24/11 1403 -- -- DEPARTMENT OF PATHOLOGY, [address] [place] [address] [facility] Permit #[id number] David Frye M.D. Director Marlin Choe M.D. Wardrobe Custodian marcie -- Procedures Date Code Description Status 10/29/2017 16901156 Mammogram Completed 10/21/2017 35452 Admin & Interp Of Health Risk Assessment w/ Patient Completed 10/09/201647758818 Mammogram Completed 10/08/201589805097 Mammogram Completed 01/11/2015 51437 Carpal Tunnel Release Completed 01/11/2015 09347 Neuroplasty &/Or Transposition; Ulnar Nerve AT Elbow Completed 01/11/2015 47190 Neuroplasty &/Or Transposition; Ulnar Nerve AT Elbow Completed 10/04/2014 [id number] Mammogram Completed 08/31/2014 28747 Trigger Finger Release Incision / Tendon Sheath Completed Incision 08/31/2014 61003 Trigger Finger Release Incision / Tendon Sheath Completed Incision 07/31/201459733 Inject Tendon Sheath Or Ligament Aponeurosis Eg Plantar Completed Fascia 08/29/2013 [id number] Mammogram Completed 08/28/201317719 Injection Single Tendon Origin/Insertion Completed 08/28/201358554 Inject/Drain Joint/Bursa Major W/O US Completed 08/28/2013 26389 Xray,Hips,Andrade,Min Two View Ea Hip Completed 05/02/2013 [id number] Colonoscopy Completed 03/15/2012 [id number] Mammogram Completed 01/11/2012 22450985 Mammogram Completed 11/05/201042872745 Mammogram Completed Encounters Type Date Location Provider Dx Diagnosis Office Visit 10/21/2017 [facility] Internal Raine Lora, Z00.00 Encntr for general 11:40a Medicine N.P. adult medical exam w/o abnormal findings Z12.31 Encntr screen mammogram for malignant neoplasm of breast G43.909 Migraine, unsp, not intractable, without status migrainosus E78.00 Pure hypercholesterolemia, unspecified Z11.51 Encounter for screening for human papillomavirus (HPV) Office Visit 10/04/2017 9:20a [facility] Internal Daisha Z00.01 Encounter for Medicine - MANUEL Jacome general adult [address] medical exam w abnormal findings Office Visit 08/18/2016 9:20a [facility] Internal Raine Lora, Z00.01 Encounter for Medicine N.P. general adult medical exam w abnormal findings Z12.31 Encntr screen mammogram for malignant neoplasm of breast G43.909 Migraine, unsp, not intractable, without status migrainosus M79.671 Pain in right foot Office Visit 08/12/2015 9:20a [facility] Internal Raine Lora, Z00.00 Encntr for Medicine N.P. 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 354.2 Lesion Ulnar Nerve Office Visit 10/23/2014 10:00a [facility] Internal Raine Lora, 599.0 UTI Urinary Medicine N.P. Tract Infection Site Not Spec 595.9 Cystitis Unspec Office Visit 10/08/2014 4:00p [facility] Internal Neil Lea, 788.41 Urinary Frequency Medicine CRATE ICER 599.0 UTI Urinary Tract Infection Site Not Spec Office Visit 08/09/2014 10:00a [facility] Internal Raine Lora, V70.0 Examination Medicine N.P. General Medical Routine AT Health Care Facility V72.31 Routine Ship Keeper Examination V76.10 Screening For Malignant Neoplasm Breast 346.90 Migraine Unspec W/O Intractable W/O Status Migrainosus 272.4 Hyperlipidemia Other Unspec Office Visit 07/31/2014 Orthopedic Glenis 727.03 Trigger Finger 9:30a Services Of [place] Acquired C.M.A. Office Visit 05/17/2014 [facility] Internal Neil Lea NP 892.0 Open Wound Foot 1:30p Medicine Except Toe(S) Alone W/O Complication V03.7 Tetanus Toxoid Vaccination & Inoculation V06.5 Tetanus Diphtheria (DT) Office Visit 05/11/2014 1:00p [facility] Internal Raine Lora, 719.44 Pain Joint Medicine N.P. Hand 783.21 Loss Of Weight Office Visit 12/19/2013 [facility] Internal Raine Lora, 599.0 UTI Urinary Tract 2:20p Medicine N.P. Infection Site Not Spec Office Visit 09/11/2013 Orthopedic Lori Aguilar 726.5 Enthesopathy Of Hip 8:30a Services Of [place] [facility] C.M.A. Office Visit 09/06/2013 [facility] Sam Lora, 599.0 UTI Urinary Tract 1:00p Medicine N.P. Infection Site Not Spec Office Visit 08/28/2013 Orthopedic Lori Aguilar, 715.95 Osteoarthrosis 10:00a Services Of Luna.Lucia Unspec Genlzd Or C.M.A. Localized Pelvic & Thigh 715.95 Osteoarthrosis Unspec Genlzd Or Localized Pelvic & Thigh 726.5 Enthesopathy Of Hip Region 726.5 Enthesopathy Of Hip Region Office Visit 08/08/2013 10:40a [facility] Internal Raine Lora, V70.0 Examination Medicine N.P. General Medical Routine AT Health Care Facility V76.10 Screening For Malignant Neoplasm Breast V72.31 Routine Ship Keeper Examination 346.90 Migraine Unspec W/O Intractable W/O Status Migrainosus 272.4 Hyperlipidemia Other Unspec 719.45 Pain Joint Pelvic Region & Thigh Office Visit 02/14/2013 9:20a [facility] Internal Raine Lora, 787.91 Diarrhea Medicine N.P. Office Visit 03/03/2012 9:00a [facility] Internal Raine Lora V70.0 Examination Medicine N.P. General Medical Routine AT Health Care Facility 346.90 Migraine Unspec W/O Intractable W/O Status Migrainosus 611.72 Lump Or Mass Breast Office Visit 12/25/2011 9:00a [employer] Internal Ivette Alma, 461.0 Sinusitis Acute Medicine N.P. Maxillary Office Visit 02/20/2011 8:40a DO Not Use Raine Varn, V70.0 Examination [employer] Foreman-Manning N.P. General Medical Routine AT Health Care Facility V72.31 Routine Ship Keeper Examination 272.4 Hyperlipidemia Other Unspec 726.32 Epicondylitis Lateral Office Visit 09/25/2010 DO Not Use Minervaambrocio Lorenzo, 389.9 Hearing Loss 2:30p [employer]ning M.D., FACP Unspec Office Visit 09/25/2009 DO Not Use Raine Varn, V70.0 Examination 9:00a [employer]Manning N.P. General Medical Routine AT [facility] Office Visit 09/05/2009 DO Not Use Raine Varn, 724.2 Lumbago 8:30a [employer]ning N.P. Office Visit 08/27/2009 DO Not Use Raine Varn, 724.2 Lumbago 11:45a [employer]ning N.P. Office Visit 04/18/2009 DO Not Use Raine Varn, 599.0 UTI Urinary Tract 11:00a [employer]ning N.P. Infection Site Not Spec Office Visit 03/01/2009 DO Not Use Raine Varn, 681.11 Onychia & 1:45p [employer]ning N.P. Paronychia Toe 703.0 Ingrowing Nail 461.9 Sinusitis Acute Unspec Office Visit 02/12/2009 2:15p DO Not Use Raine Varn, 461.9 Sinusitis Acute [employer]ning N.P. Unspec Office Visit 09/24/2008 10:45a DO Not Use Raine Varn, 461.9 Sinusitis Acute [employer]ning N.P. Unspec 466.0 Bronchitis Acute Office Visit 01/17/2008 10:30a DO Not Use Minervaambrocio Lorenzo, 466.0 Bronchitis Acute [employer] Luna.Lucia, FACP Office Visit 04/28/2007 2:00p DO Not Use Minervaambrocio Lorenzo, 461.9 Sinusitis Acute [employer]ning Luna.Lucia, FACP Unspec Office Visit 04/05/2007 2:30p DO Not Use [place], V70.0 Examination Fleet Maintenance Foreman-Melania Pride M.D. General Medical Routine AT Health Care Facility V06.1 Qqrgsnapab-Zprxphn-Gndiqwmg Combined (DTaP) Plan of Treatment 11/22/2018 - Raine Lora N.P.Z00.00 Encounter for general adult medical examination without abnoComments:For your routine health maintenance: I encourage you to continue with regular exercise and healthy nutrition. You need to be getting between 1,000 - 1,200 mg of Calcium in daily. The best way to supplement what you get in your diet is to drink Calcium fortified orange juice. If you take a Calcium supplement be sure it has Vitamin D in it to help absorption. Your Tetanus immunization is up to date. You received this in 2015. It is good for 10 years unless you have a major injury, then it is good for 5 years. Your colonoscopy is up to date. You had this in 2012. You will need this repeated in 2022.Iencourage you to do self exams. If you should notice any masses or thickening, please give the office a call.G43.909 Migraine, unspecified, not intractable, without status migraComments:For your migraine headaches: I advise you to continue with your current management. If you should find that this is ineffective for you , please give the office a call.E78.00 Pure hypercholesterolemia, unspecifiedComments:Your recent labs to check your cholesterol looked good. I advise you to follow a low cholesterol diet.
== END | disposition home or self-care (01) ==
LOC: ED 17:54
DX: M45.4 Ankylosing spondylitis of thoracic region (principal); Z53.21 Procedure and treatment not carried out due to patient leaving prior to being seen by health care provider
CPT/HCPCS: 99281

== ENCOUNTER 2018-12-13 18:38 | Emergency (ER) | payer OTHER ==
[2018-12-13 18:51] VITALS: BP 138/73
[2018-12-13] MEDS ORDERED: HYDROcodone/ACETAMIN 5-325 MG* 1 TAB PO ONE (19:05)
--- NOTE | 2018-12-13 20:24 | UC ---
Back Pain HPI - HPI Summary HPI Summary: 58 yo female with onset of LBP this afternoon took 600mg ibu before arrival severe back spasms which make her legs buckle no bowel or bladder dysfunction no hx CA hx similar episode yrs ago - History of Current Complaint Chief Complaint: UCBackPain Stated Complaint: BACK INJURY Time Seen by Provider: 12/13/18 18:54 Hx Obtained From: Patient Onset/Duration: Gradual Onset, Lasting Hours Timing: Constant Severity Initially: Severe Severity Currently: Moderate Pain Intensity: 7 Pain Scale Used: 0-10 Numeric Back Pain: Is Diffuse Character: Throbbing, Spasmodic, Stiffness Aggravating Factor(s): Movement, Lifting, Bending, Walking Alleviating Factor(s): Rest, OTC Meds Associated Signs And Symptoms: Positive: Negative Related History: Previous Back Injury Full Body (No Head): 1 - pain/including midline tenderness - Allergies/Home Medications Allergies/Adverse Reactions: Allergies Allergy/AdvReac Type Severity Reaction Status Date / Time No Known Allergies Allergy Verified 12/13/18 18:44 Home Medications: Home Medications Acetaminophen/Caffeine [Excedrin Tension Headache Cplt] 1 each PO Q12HR PRN [History Confirmed 12/13/18] Ibuprofen 600 mg PO Q8HR PRN 12/13/18 [History Confirmed 12/13/18] PMH/Surg Hx/FS Hx/Imm Hx Previously Healthy: Yes - Surgical History Surgical History: Yes Surgery Procedure, Year, and Place: 1998 BILATERAL TUBAL LIGATION. [id number] HYSTERECTOMY. [id number] [place] [facility] [place] EYE SURGERY- 17 YEARS- [facility]. 08/2014- RIGHT [place] [facility] [place] Family History Known Family History: Positive: Hypertension - Social History Alcohol Use: Occasionally Substance Use Type: None Smoking Status (MU): Never Smoked Tobacco Review of Systems All Other Systems Reviewed And Are Negative: Yes Constitutional: Positive: Negative Skin: Positive: Negative Eyes: Positive: Negative ENT: Positive: Negative Respiratory: Positive: Negative Cardiovascular: Positive: Negative Genitourinary: Positive: Negative Motor: Positive: Negative Neurovascular: Positive: Negative Musculoskeletal: Positive: Arthralgia, Myalgia Neurological: Positive: Negative Psychological: Positive: Negative Physical Exam Triage Information Reviewed: Yes Appearance: Well-Appearing, No Pain Distress, Well-Nourished Vital Signs: Initial Vital Signs Temp 99.9 F 12/13/18 18:43 Pulse 64 12/13/18 18:43 Resp 18 12/13/18 18:43 BP 138/73 12/13/18 18:43 Pulse Ox 99 12/13/18 18:43 Vital Signs Reviewed: Yes Eyes: Positive: Conjunctiva Clear ENT: Positive: Hearing grossly normal. Negative: Nasal congestion, TMs normal, Tonsillar swelling, Tonsillar exudate, Trismus, Muffled voice, Hoarse voice, Sinus tenderness Neck: Positive: Supple, Nontender, No Lymphadenopathy Respiratory: Positive: Lungs clear, Normal breath sounds, No respiratory distress, No accessory muscle use Cardiovascular: Positive: RRR, No Murmur Musculoskeletal: Positive: ROM Intact, No Edema, Other: - limited ROM back Neurological: Positive: Alert, Other: - -SLR Psychological Exam: Normal Skin Exam: Normal Diagnostics - Radiology No standard instances Radiology Interpretation Completed By: ED Physician Summary of Radiographic Findings: LS mild djd Back Pain Course/Dx - Differential Dx/Diagnosis Provider Diagnosis: Acute lumbar myofascial strain Discharge - Sign-Out/Discharge Documenting (check all that apply): Patient Departure All imaging exams completed and their final reports reviewed: No - Discharge Plan Condition: Stable Disposition: HOME Prescriptions: Cyclobenzaprine (NF) [Cyclobenzaprine 5 MG (NF)] 5 mg PO TID PRN #21 tab PRN Reason: Spasms - Back Patient Education Materials: Low Back Strain (ED) Forms: *Work Release Referrals: Raine Lora NP [Primary Care Provider] - 5 Days Additional Instructions: ibuprofen 600mg 3-4 x day with food muscle relaxer may cause drowsiness recheck next week if not better official XR report pending - Billing Disposition and Condition Condition: STABLE Disposition: Home
--- NOTE | 2018-12-14 11:28 | UC ---
- Progress Note Progress Note: RADIOLOGY REPORT REVIEWED. FACET OSTEOARTHRITIS WITH MILD DEGENERATIVE DISC DISEASE. NO CHANGE IN MGMT. Course/Dx - Diagnoses Provider Diagnoses: Acute lumbar myofascial strain Discharge - Sign-Out/Discharge Documenting (check all that apply): Post-Discharge Follow Up All imaging exams completed and their final reports reviewed: Yes - Discharge Plan Condition: Stable Disposition: HOME Prescriptions: Cyclobenzaprine (NF) [Cyclobenzaprine 5 MG (NF)] 5 mg PO TID PRN #21 tab PRN Reason: Spasms - Back Patient Education Materials: Low Back Strain (ED) Forms: *Work Release Referrals: Raine Lora NP [Primary Care Provider] - 5 Days Additional Instructions: ibuprofen 600mg 3-4 x day with food muscle relaxer may cause drowsiness recheck next week if not better official XR report pending - Billing Disposition and Condition Condition: STABLE Disposition: Home
== END 2018-12-13 20:27 | disposition home or self-care (01) ==
LOC: UCEAST 18:38
DX: S39.012A Strain of muscle, fascia and tendon of lower back, initial encounter (principal); X58.XXXA Exposure to other specified factors, initial encounter; Y92.9 Unspecified place or not applicable; M47.817 Spondylosis without myelopathy or radiculopathy, lumbosacral region
CPT/HCPCS: 72110; 99212; G0463